=== PATIENT | female | born 1965 | race Caucasian/White ===

== ENCOUNTER → 2023-07-21 14:30 | Outpatient (REF) | payer OTHER, SELFPAY | LOC: WDC 14:30 | PROVIDERS: ATTENDING PHYSICIAN Nurse Practitioner Adult Health | DX: Z12.31 Encounter for screening mammogram for malignant neoplasm of breast (principal) | CPT/HCPCS: 77063; 77067 ==

== ENCOUNTER → 2024-07-26 10:46 | Outpatient (REF) | payer OTHER, SELFPAY | LOC: WDC 10:46 | PROVIDERS: ATTENDING PHYSICIAN Internal Medicine | DX: Z12.31 Encounter for screening mammogram for malignant neoplasm of breast (principal) | CPT/HCPCS: 77063; 77067 ==

== ENCOUNTER → 2025-01-02 15:46 | Outpatient (REF) | payer OTHER, SELFPAY | LOC: REG 15:46 | PROVIDERS: ATTENDING PHYSICIAN Nurse Practitioner Adult Health | DX: M54.50 Low back pain, unspecified (principal) | CPT/HCPCS: 72110 ==